=== PATIENT | male | born 1955 | race Caucasian/White ===

== ENCOUNTER 2016-05-15 08:14 | Day surgery (SDC) | payer MEDICARE, OTHER ==
[2016-05-15] MEDS ORDERED: LACTATED RINGERS 1,000 ML IV ONE (08:27)
[2016-05-15] MEDS ORDERED: MIDAZOLAM 2 MG/2 ML VIAL IVP ONE (10:15)
[2016-05-15] MEDS ORDERED: fentaNYL 250 MCG/5 ML VIAL IVP ONE (10:15)
== END 2016-05-15 08:15 | disposition home or self-care (01) ==
PROC: 0DBL8ZZ Excision of Transverse Colon, Via Natural or Artificial Opening Endoscopic (ICD-10-PCS; principal; 2016-05-15 09:15)
DX: Z12.11 Encounter for screening for malignant neoplasm of colon (principal); D12.3 Benign neoplasm of transverse colon; K64.4 Residual hemorrhoidal skin tags; K64.5 Perianal venous thrombosis
CPT/HCPCS: 45380; J3010; J7120

== ENCOUNTER 2016-12-04 08:00 | Outpatient (CLI) | payer MEDICARE ==
[2016-12-04 18:54] LABS: BASOPHILS % (AUTO) 0.7 %; EOSINOPHILS # (AUTO) 0.2 10^3/uL (0.0-0.7); EOSINOPHILS % (AUTO) 3.2 %; HCT - HEMATOCRIT 48.6 % (42.0-52.0); LYMPHOCYTES # (AUTO) 1.8 10^3/uL (1.5-3.5); LYMPHOCYTES % (AUTO) 26.3 %; MEAN CORPUSCULAR HEMOGLOBIN 28.3 pg (27.0-31.0); MEAN CORPUSCULAR HGB CONC 32.8 g/dL (32.0-36.0); MEAN CORPUSCULAR VOLUME 86.3 fL (80.0-94.0); MEAN PLATELET VOLUME 8.1 fL (7.4-11.4); MONOCYTES # (AUTO) 0.6 10^3/uL (0.0-1.0); MONOCYTES % (AUTO) 8.9 %; NEUTROPHILS # (AUTO) 4.1 10^3/uL (1.5-6.6); NEUTROPHILS % (AUTO) 60.9 %; NUCLEATED RED BLOOD CELLS AUTO 0.1 /100WBC; RED BLOOD COUNT 5.63 10^6/uL (4.70-6.10); RED CELL DISTRIBUTION WIDTH 14.7 % (12.0-15.0); UNCORRECTED WHITE BLOOD COUNT 6.7 x10^3/uL; WHITE BLOOD COUNT 6.7 x10^3/uL (4.8-10.8)
== END 2016-12-04 08:01 | disposition home or self-care (01) ==
LOC: LAB.WCP 08:00
PROVIDERS: ATTEND Family Medicine
DX: M25.50 Pain in unspecified joint (principal); N49.2 Inflammatory disorders of scrotum
CPT/HCPCS: 36415; 85025; 85651; 86140

== ENCOUNTER 2017-04-19 05:58 | Emergency (ER) | payer MEDICARE ==
[2017-04-19] MEDS ORDERED: CLINDAMYCIN 150 MG CAPSULE PO STA (06:14)
[2017-04-19] MEDS ORDERED: DEXAMETHASONE 10 MG/ML VIAL PO STA (06:14)
[2017-04-19] MEDS ORDERED: diphenhydrAMINE 25 MG CAPSULE PO STA (06:14)
[2017-04-19] MEDS ORDERED: FAMOTIDINE 20 MG TABLET PO STA (06:15)
[2017-04-19 06:51] VITALS: BP 166/97
[2017-04-19] MEDS ORDERED: PSEUDOEPHEDRINE 30 MG TABLET PO STA (06:55)
--- NOTE | 2017-04-19 06:57 | ED Physician Documentation ---
PD HPI HEENT - Stated complaint Stated Complaint: FACE/TONGUE SWELLING - Chief complaint Chief Complaint: Resp - History obtained from History obtained from: Patient, Family - History of Present Illness Timing - onset: Today Timing - details: Gradual onset, Still present Location: Sinuses, Mouth Improves: Medication Associated symptoms: Fever, Congestion, Facial swelling Similar symptoms before: Work up / diagnostics, Treatment Recently seen: Not recently seen - Additional information Additional information: Patient is a 61 year old male with a history of recurrent infections and multiple allergies who is presenting to the emergency department for congestion and facial swelling. patient states that he has had painful congestion the last few days, and this morning it felt even worse and he felt like his tongue was swollen. Patient and report that he has had allergic reaction to cold medicine in the past. Review of Systems Constitutional: denies: Fever, Chills Ears: denies: Ear pain, Drainage/discharge Nose: reports: Rhinorrhea / runny nose, Congestion, Sinus pressure / pain Throat: reports: Sore throat Cardiac: denies: Chest pain / pressure, Palpitations Respiratory: denies: Cough, Hemoptysis, Wheezing GI: reports: Reviewed and negative : reports: Reviewed and negative Skin: denies: Rash Musculoskeletal: denies: Neck pain, Back pain Neurologic: denies: Near syncope, Syncope, Headache, LOC Psychiatric: reports: Depressed, Reviewed and negative PD PAST MEDICAL HISTORY - Past Medical History Past Medical History: Yes Cardiovascular: None Respiratory: Pneumonia, Sleep apnea Neuro: None Endocrine/Autoimmune: None GI: GERD, Ulcers : Kidney stones HEENT: None Psych: Depression, Anxiety Musculoskeletal: Osteoarthritis, Chronic back pain, Other Derm: None - Past Surgical History Past Surgical History: Yes Ortho: Knee replacement - Present Medications Home Medications: Ambulatory Orders Medication Instructions Recorded Confirmed Alprazolam [Alprazolam Odt] 0.25 mg PO 3-4XD PRN 08/19/12 05/15/16 HYDROcod/ACETAM 5/325 [Vicodin 1 each PO PRN PRN 08/19/12 05/15/16 5/325] Omeprazole [Prilosec] 20 mg PO DAILY 08/19/12 05/15/16 Paroxetine HCl [Paxil] 10 mg PO BID 08/19/12 05/15/16 Clindamycin HCl [Clindamycin 300MG 300 mg PO Q6H 7 Days capsule 04/19/17 CAP] - Allergies Allergies/Adverse Reactions: Allergies Allergy/AdvReac Type Severity Reaction Status Date / Time amoxicillin trihydrate * Allergy Severe Respiratory Verified 11/18/12 21:08 [From Augmentin] adhesive Allergy Intermediate Rash Verified 11/18/12 21:08 potassium clavulanate * Allergy Intermediate Respiratory Verified 11/18/12 21:08 [From Augmentin] diclofenac sodium * AdvReac Edema Verified 11/18/12 21:08 [From Voltaren] zycam Allergy Severe Respiratory Uncoded 11/18/12 21:08 - Social History Does the pt smoke?: No Smoking Status: Never smoker Does the pt drink ETOH?: No Does the pt have substance abuse?: No - Immunizations Immunizations are current?: Yes - POLST Patient has POLST: No PD ED PE NORMAL - General General: Alert and oriented X 3, No acute distress - HEENT HEENT: Atraumatic, PERRL, Moist mucous membranes - Neck Neck: Supple, no meningeal sign - Cardiac Cardiac: RRR, No murmur - Respiratory Respiratory: No respiratory distress - Abdomen Abdomen: Soft - Derm Derm: Normal color, Warm and dry, No rash - Extremities Extremities: No deformity - Neuro Neuro: Alert and oriented X 3, No motor deficit, No sensory deficit Eye Opening: Spontaneous Motor: Obeys Commands Verbal: Oriented GCS Score: 15 - Psych Psych: Normal mood PD ED PE EXPANDED - HEENT HEENT: Right frontal sinus TTP, Left frontal sinus TTP, Right maxillary sinus TTP, Left maxillary sinus TTP, Nasal congestion, Rhinorrhea, Dry mucous membranes, Pharynx normal, Other (subjective tongue swelling). No: Swollen tonsils - Respiratory Respiratory: No: Wheezing, Rhonchi Results - Vitals Vitals: Vital Signs - 24 hr 04/19/17 04/19/17 04/19/17 06:00 06:28 06:50 Temperature 36.3 C L Heart Rate 76 74 76 Respiratory 22 20 16 Rate Blood Pressure 190/119 H 163/110 H 166/97 H O2 Saturation 97 98 98 Oxygen O2 Source Room air PD MEDICAL DECISION MAKING - ED course Complexity details: reviewed old records, reviewed results, re-evaluated patient , considered differential, d/w patient, d/w family ED course: Patient was seen and examined at bedside. Patient complained of subjective tongue swelling, but did have clinical sinusitis. Patient was treated with decadron, benadryl, pepcid and clindamycin. Patient stated that she felt much better. Patient required no further work up and was stable for discharge with outpatient follow up. Departure - Departure Disposition: 01 Home, Self Care Clinical Impression: Sinusitis Condition: Good Instructions: ED Sinusitis Abx Tx Follow-Up: Saeid Gaines MD [Primary Care Provider] - Within 3 Days Prescriptions: Clindamycin HCl [Clindamycin 300MG CAP] 300 mg PO Q6H 7 Days capsule Comments: Your symptoms today are likely secondary to sinusitis. You will be on clindamycin for the next week. You should take it with yogurt or probiotics to help reduce the GI side effects. You can also take benadryl, pepcid and pseudophed. A lot of the over the counter sinus pills will have combinations of the necessary medications. You should follow up with your doctor if your symptoms don't improve. You may return to the emergency department at any time for new, worsening or uncontrollable symptoms. Discharge Date/Time: 04/19/17 07:13
== END 2017-04-19 07:13 | disposition home or self-care (01) ==
LOC: ED 05:58
DX: J32.9 Chronic sinusitis, unspecified (principal)
CPT/HCPCS: 99283; 99284; A9270

== ENCOUNTER 2018-11-12 15:39 | Emergency (ER) | payer OTHER, MEDICARE ==
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
[2018-11-12] MEDS ORDERED: KETOROLAC 30 MG/ML VIAL IVP STA (16:30)
[2018-11-12] MEDS ORDERED: MORPHINE 10 MG/ML VIAL IVP ONE (16:30)
[2018-11-12] MEDS ORDERED: IOVERSOL 320 100 ML VIAL IVP ONE ×2 (16:46→17:23)
[2018-11-12] MEDS ORDERED: METHOCARBAMOL 500 MG TABLET PO STA (16:52)
[2018-11-12 16:56] LABS: BASOPHILS % (AUTO) 0.5 %; EOSINOPHILS # (AUTO) 0.1 10^3/uL (0.0-0.7); EOSINOPHILS % (AUTO) 0.9 %; HGB - HEMOGLOBIN 16.2 g/dL (14.0-18.0); LYMPHOCYTES # (AUTO) 1.2 10^3/uL (1.5-3.5); LYMPHOCYTES % (AUTO) 15.1 %; MEAN CORPUSCULAR HEMOGLOBIN 28.3 pg (27.0-31.0); MEAN CORPUSCULAR HGB CONC 32.7 g/dL (32.0-36.0); MEAN CORPUSCULAR VOLUME 86.6 fL (80.0-94.0); MEAN PLATELET VOLUME 9.5 fL (7.4-11.4); MONOCYTES # (AUTO) 0.6 10^3/uL (0.0-1.0); MONOCYTES % (AUTO) 7.5 %; NEUTROPHILS # (AUTO) 6.2 10^3/uL (1.5-6.6); NEUTROPHILS % (AUTO) 75.8 %; PLT - PLATELET COUNT 228 10^3/uL (130-450); RED BLOOD COUNT 5.73 10^6/uL (4.70-6.10); RED CELL DISTRIBUTION WIDTH 13.6 % (12.0-15.0); WHITE BLOOD COUNT 8.1 x10^3/uL (4.8-10.8)
[2018-11-12 17:12] LABS: ALBUMIN 3.9 g/dL (3.2-5.5); BILIRUBIN,TOTAL 1.2 mg/dL (0.2-1.0); CALCIUM 8.9 mg/dL (8.5-10.3); CREATININE 1.1 mg/dL (0.6-1.2); TOTAL PROTEIN 7.9 g/dL (6.7-8.2)
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
[2018-11-12 18:16] VITALS: BP 124/67
== END 2018-11-12 18:32 | disposition home or self-care (01) ==
LOC: ED 15:39
DX: S62.524A Nondisplaced fracture of distal phalanx of right thumb, initial encounter for closed fracture (principal); S39.012A Strain of muscle, fascia and tendon of lower back, initial encounter; S20.219A Contusion of unspecified front wall of thorax, initial encounter; S30.1XXA Contusion of abdominal wall, initial encounter; M54.2 Cervicalgia; M25.511 Pain in right shoulder; M25.512 Pain in left shoulder; M25.561 Pain in right knee; M25.562 Pain in left knee; V43.52XA Car driver injured in collision with other type car in traffic accident, initial encounter; Y92.411 Interstate highway as the place of occurrence of the external cause
CPT/HCPCS: 36415; 71260; 72125; 73140; 74177; 80053; 83690; 85025; 96374; 99284; A9270; Q9967

== ENCOUNTER 2018-12-24 08:00 | Outpatient (CLI) | payer MEDICARE ==
[2018-12-24 18:54] LABS: BASOPHILS % (AUTO) 0.7 %; EOSINOPHILS # (AUTO) 0.3 10^3/uL (0.0-0.7); EOSINOPHILS % (AUTO) 4.7 %; HGB - HEMOGLOBIN 16.5 g/dL (14.0-18.0); LYMPHOCYTES # (AUTO) 1.3 10^3/uL (1.5-3.5); MEAN CORPUSCULAR HEMOGLOBIN 28.9 pg (27.0-31.0); MEAN CORPUSCULAR HGB CONC 32.2 g/dL (32.0-36.0); MEAN CORPUSCULAR VOLUME 89.7 fL (80.0-94.0); MEAN PLATELET VOLUME 9.7 fL (7.4-11.4); MONOCYTES # (AUTO) 0.5 10^3/uL (0.0-1.0); MONOCYTES % (AUTO) 8.4 %; NEUTROPHILS # (AUTO) 3.6 10^3/uL (1.5-6.6); NEUTROPHILS % (AUTO) 62.7 %; PLT - PLATELET COUNT 321 10^3/uL (130-450); RED BLOOD COUNT 5.71 10^6/uL (4.70-6.10); RED CELL DISTRIBUTION WIDTH 13.5 % (12.0-15.0); WHITE BLOOD COUNT 5.7 x10^3/uL (4.8-10.8)
[2018-12-24 19:10] LABS: ALBUMIN 3.8 g/dL (3.2-5.5); ALBUMIN/GLOBULIN RATIO 0.9 (1.0-2.2); CALCIUM 8.9 mg/dL (8.5-10.3); CREATININE 1.1 mg/dL (0.6-1.2)
[2018-12-24 19:17] LABS: CHOLESTEROL 167 mg/dL; HDL CHOLESTEROL 42 mg/dL; LDL CHOLESTEROL,CALCULATED 104 mg/dL; LDL/HDL RATIO 2.5 (<3.6); VLDL CHOLESTEROL 21 mg/dL
[2018-12-24 19:46] LABS: HB2 TOTAL 17.5 g/dL; HEMOGLOBIN A1C 0.74 g/dL
[2018-12-24 19:57] LABS: CREATININE,URINE 583.5 mg/dL; MICROALBUM/CREATININE RATIO,UR 24.3 ug/mg (<30.0); MICROALBUMIN,URINE 14.2 mg/dL (0-300.0)
== END 2018-12-24 23:59 | disposition home or self-care (01) ==
LOC: LAB.WCP 08:00
PROVIDERS: ATTEND Family Medicine
DX: Z00.00 Encounter for general adult medical examination without abnormal findings (principal); R73.9 Hyperglycemia, unspecified; R03.0 Elevated blood-pressure reading, without diagnosis of hypertension; Z12.5 Encounter for screening for malignant neoplasm of prostate
CPT/HCPCS: 36415; 80061; 82043; 82570; 83036; G0103; 80053; 83721; 84153; 84443; 85025

== ENCOUNTER 2019-01-02 08:00 | Outpatient (CLI) | payer MEDICARE ==
[2019-01-02 19:10] LABS: PSA FREE 0.627 ng/mL (0.16-2.81); PSA TOTAL 3.455 ng/mL (0.000-2.000)
== END 2019-01-02 23:59 | disposition home or self-care (01) ==
LOC: LAB.WCP 08:00
PROVIDERS: ATTEND Family Medicine
DX: R97.20 Elevated prostate specific antigen [PSA] (principal)
CPT/HCPCS: 36415; 84153; 84154

== ENCOUNTER 2021-11-15 07:48 | Day surgery (SDC) | payer MEDICARE ==
--- NOTE | 2021-11-15 07:25 | ANESTHESIA ---
Pre-Anesthesia VS, & Labs - Diagnosis screening - Procedure colonoscopy Height: 5 ft 8 in - NPO >8 hours Home Medications and Allergies Omeprazole [Prilosec] 20 mg PO DAILY 08/19/12 Allergies/Adverse Reactions: Allergies Allergy/AdvReac Type Severity Reaction Status Date / Time amoxicillin trihydrate * Allergy Severe Respiratory Verified 10/18/21 17:31 [From Augmentin] adhesive Allergy Intermediate Rash Verified 10/18/21 17:31 potassium clavulanate * Allergy Intermediate Respiratory Verified 10/18/21 17:31 [From Augmentin] latex Allergy Rash Verified 11/08/21 13:07 diclofenac sodium * AdvReac Edema Verified 10/18/21 17:31 [From Voltaren] zycam Allergy Severe Respiratory Uncoded 11/12/18 15:53 Anes History & Medical History - Anesthetic History Anesthesia Complications: reports: No previous complications Family history of Anesthesia Complications: Denies Family history of Malignant Hyperthermia: Denies - Medical History Cardiovascular: reports: None Pulmonary: reports: Pneumonia Gastrointestinal: reports: GERD, Ulcers Urinary: reports: Kidney stones Musculoskeletal: reports: Osteoarthritis, Chronic back pain Endocrine/Autoimmune: reports: None Blood Disorders: reports: None Skin: reports: None Smoking Status: Never smoker - Surgical History General: reports: Colonoscopy, EGD Urologic: reports: Ureterolithotomy (stones) Orthopedic: reports: Knee replacement Exam General: Alert, Oriented x3, Cooperative Dental: WNL Mouth Openin Fingerbreadth Neck Mobility: Normal Mallampati classification: II Thyromental Distance: 4-6 cm Respiratory: Lungs clear, Normal breath sounds, No respiratory distress Cardiovascular: Regular rate Neurological: Normal speech Mental/Cognitive Status: Alert/Oriented X3, Normal for patient Cognitive Status: Within normal limits Plan Anesthesia Type: Total IV Consent for Procedure(s) Verified and Reviewed: Yes Code Status: Attempt Resuscitation ASA classification: 3-Severe systemic disease Is this case an emergency?: No
[~2021-11-15 07:48] MED LIST: PROPOFOL 500 MG/50 ML 500 MG/50 ML VIAL ONE
[2021-11-15] MEDS ORDERED: LACTATED RINGERS 1,000 ML IV ONE (08:30)
[2021-11-15] MEDS ORDERED: MIDAZOLAM 2 MG/2 ML VIAL ONE (09:02)
[2021-11-15] MEDS ORDERED: LACTATED RINGERS 700 ML IV ONE (09:35)
[2021-11-15 10:01] VITALS: BP 139/82
--- NOTE | 2021-11-15 11:02 | ANESTHESIA POST OP EVALUATION ---
Anesthesia Post Eval - Post Anesthesia Eval Vitals: Last Vital Signs Temp 36.4 C L 11/15/21 10:00 Pulse 74 11/15/21 10:00 Resp 16 11/15/21 10:00 BP 139/82 H 11/15/21 10:00 Pulse Ox 93 11/15/21 10:00 CV Function Including HR & BP: Stable Pain Control: Satisfactory Nausea & Vomiting: Negative Mental Status: Baseline Respiratory Status: Airway Patent Hydration Status: Satisfactory Anesthesia Complications: None
== END 2021-11-15 07:49 | disposition home or self-care (01) ==
LOC: SDS 07:48
PROVIDERS: ATTEND Surgery
DX: Z12.11 Encounter for screening for malignant neoplasm of colon (principal); K64.8 Other hemorrhoids; G47.33 Obstructive sleep apnea (adult) (pediatric)

== ENCOUNTER 2023-07-04 16:34 | Emergency (ER) | payer MEDICARE ==
[2023-07-04 17:07] LABS: BASOPHILS # (AUTO) 0.1 10^3/uL (0.0-0.1); BASOPHILS % (AUTO) 0.8 %; EOSINOPHILS # (AUTO) 0.3 10^3/uL (0.0-0.7); EOSINOPHILS % (AUTO) 3.6 %; LYMPHOCYTES # (AUTO) 1.7 10^3/uL (1.5-3.5); LYMPHOCYTES % (AUTO) 23.5 %; MEAN CORPUSCULAR HEMOGLOBIN 28.9 pg (27.0-31.0); MEAN CORPUSCULAR HGB CONC 33.3 g/dL (32.0-36.0); MEAN CORPUSCULAR VOLUME 86.6 fL (80.0-94.0); MEAN PLATELET VOLUME 9.3 fL (7.4-11.4); MONOCYTES # (AUTO) 0.7 10^3/uL (0.0-1.0); MONOCYTES % (AUTO) 8.8 %; NEUTROPHILS # (AUTO) 4.7 10^3/uL (1.5-6.6); NEUTROPHILS % (AUTO) 63.2 %; PLT - PLATELET COUNT 263 10^3/uL (130-450); RED BLOOD COUNT 5.89 10^6/uL (4.70-6.10); RED CELL DISTRIBUTION WIDTH 13.8 % (12.0-15.0); WHITE BLOOD COUNT 7.4 x10^3/uL (4.8-10.8)
[2023-07-04 17:15] LABS: BILIRUBIN,URINE NEGATIVE (NEGATIVE); GLUCOSE, URINE (UA) NEGATIVE (NEGATIVE); KETONES,URINE (UA) NEGATIVE (NEGATIVE); LEUKOCYTE ESTERASE, URINE NEGATIVE (NEGATIVE); NITRITE,URINE NEGATIVE (NEGATIVE); OCCULT BLOOD,URINE NEGATIVE (NEGATIVE); PH,URINE 5.5 PH (5.0-7.5); PROTEIN,URINE NEGATIVE (NEGATIVE); UROBILINOGEN,URINE 0.2 (NORMAL) E.U./dL (NORMAL)
[2023-07-04 17:17] LABS: CLARITY,URINE CLEAR (CLEAR)
[2023-07-04 17:26] LABS: ALBUMIN 4.3 g/dL (3.2-5.5); ALBUMIN/GLOBULIN RATIO 1.2 (1.0-2.2); BILIRUBIN,TOTAL 0.6 mg/dL (0.2-1.0); CALCIUM 9.9 mg/dL (8.5-10.3); POTASSIUM 4.2 mmol/L (3.5-4.5)
--- NOTE | 2023-07-04 17:39 | ED Physician Documentation ---
PD HPI ABD PAIN - Stated complaint Stated Complaint: ABD PX - Chief complaint Chief Complaint: Abd Pain - History obtained from History obtained from: Patient - History of Present Illness Timing - details: Gradual onset, Still present, Intermittant, Waxing and waning Quality: Cramping, Stabbing Worsened by: Palpation - Additional information Additional information: 67-year-old male who has a past medical history significant for Crohn's disease according to the patient with prior diverticulitis, kidney stones, and gastric ulcers who presents with left lower quadrant abdominal pain. Pain started aboutA week ago but worsening over the last couple of days. Pain is always there but he has waves of worsening pain. He has also felt distended and states that his abdomen is twice the size it normally is. He has not had a fever to his knowledge, no chills, no vomiting, or nausea. He has had normal bowel m ovements.He previously was told to be on famotidine but he was not taking it regularly because his prior GERD symptoms resolved For the most part. He He does note lately however that he has been taking quite regular ibuprofen due to arthritis pain throughout the winter. He is not on any medication for his Crohn's. Colonoscopy 10/2021 appears essential normal. No mention of Crohns. Review of Systems Constitutional: reports: Reviewed and negative Eyes: reports: Reviewed and negative Ears: reports: Reviewed and negative Nose: reports: Reviewed and negative Throat: reports: Reviewed and negative Cardiac: reports: Reviewed and negative Respiratory: reports: Reviewed and negative GI: reports: Abdominal Pain : reports: Reviewed and negative Musculoskeletal: reports: Reviewed and negative Neurologic: reports: Reviewed and negative Psychiatric: reports: Reviewed and negative Endocrine: reports: Reviewed and negative Immunocompromised: reports: Reviewed and negative PD PAST MEDICAL HISTORY - Past Medical History Past Medical History: Yes Cardiovascular: None Respiratory: Pneumonia Endocrine/Autoimmune: None GI: GERD, Ulcers : Kidney stones HEENT: None Psych: Depression, Anxiety Musculoskeletal: Osteoarthritis, Chronic back pain Derm: None - Past Surgical History Past Surgical History: Yes General: Colonoscopy, EGD Ortho: Knee replacement - Present Medications Home Medications: Ambulatory Orders Medication Instructions Recorded Confirmed Omeprazole [Prilosec] 20 mg PO DAILY 08/19/12 11/15/21 HYDROcod/ACETAM 5/325 [Sharon 5/325] 1 - 2 tab PO Q6H PRN #15 tablet 10/18/21 11/15/21 Famotidine [Pepcid] 20 mg PO BID #60 tablet 07/04/23 HYDROcod/ACETAM 5/325 [Sharon 5/325] 1 - 2 tablet PO Q6H PRN #14 tablet 07/04/23 - Allergies Allergies/Adverse Reactions: Allergies Allergy/AdvReac Type Severity Reaction Status Date / Time amoxicillin trihydrate * Allergy Severe Respiratory Verified 07/04/23 16:51 [From Augmentin] adhesive Allergy Intermediate Rash Verified 07/04/23 16:51 potassium clavulanate * Allergy Intermediate Respiratory Verified 07/04/23 16:51 [From Augmentin] latex Allergy Rash Verified 07/04/23 16:51 diclofenac sodium * AdvReac Edema Verified 07/04/23 16:51 [From Voltaren] zycam Allergy Severe Respiratory Uncoded 07/04/23 16:51 - Social History Does the pt smoke?: No Smoking Status: Never smoker Does the pt drink ETOH?: No Does the pt have substance abuse?: No - Immunizations Immunizations are current?: Yes - POLST Patient has POLST: No PD ED PE NORMAL - Vitals Vital signs reviewed: Yes - General General: Alert and oriented X 3, No acute distress, Well developed/nourished - HEENT HEENT: Atraumatic, Moist mucous membranes - Neck Neck: Supple, no meningeal sign, No JVD - Cardiac Cardiac: RRR, No murmur - Respiratory Respiratory: No respiratory distress, Clear bilaterally - Abdomen Abdomen: Normal bowel sounds, Soft, Other (Tenderness in the left lower abdomen. Active bowel tones.) - Back Back: No CVA TTP, No spinal TTP - Derm Derm: Normal color, Warm and dry, No rash - Extremities Extremities: No deformity, No tenderness to palpate, Normal ROM s pain, No edema, No calf tenderness / cord - Neuro Neuro: Alert and oriented X 3 Eye Opening: Spontaneous Motor: Obeys Commands Verbal: Oriented GCS Score: 15 - Psych Psych: Normal mood, Normal affect Results - Vitals Vitals: Vital Signs - 24 hr 07/04/23 07/04/23 07/04/23 16:40 18:59 20:07 Temperature 36.1 C L Heart Rate 81 84 78 Respiratory 22 17 19 Rate Blood Pressure 155/90 H 164/91 H 148/79 H O2 Saturation 97 93 98 Oxygen O2 Source Room air - Labs Labs: Laboratory Tests 07/04/23 07/04/23 07/04/23 16:57 17:02 17:02 WBC 7.4 RBC 5.89 Hgb 17.0 Hct 51.0 MCV 86.6 MCH 28.9 MCHC 33.3 RDW 13.8 Plt Count 263 MPV 9.3 Neut # (Auto) 4.7 Lymph # (Auto) 1.7 [place] # (Auto) 0.7 Eos # (Auto) 0.3 Baso # (Auto) 0.1 Absolute Nucleated RBC 0.00 Nucleated RBC % 0.0 Sodium 136 Potassium 4.2 Chloride 104 Carbon Dioxide 25 Anion Gap 7.0 BUN 21 H Creatinine 1.0 Estimated GFR (MDRD) 75 L Glucose 143 H Calcium 9.9 Total Bilirubin 0.6 AST 18 ALT 17 Alkaline Phosphatase 65 Total Protein 8.0 Albumin 4.3 Globulin 3.7 Albumin/Globulin Ratio 1.2 Lipase 15 Urine Color YELLOW Urine Clarity CLEAR Urine pH 5.5 Ur Specific [place] >=1.030 H Urine Protein NEGATIVE Urine Glucose (UA) NEGATIVE Urine Ketones NEGATIVE Urine Occult Blood NEGATIVE Urine Nitrite NEGATIVE Urine Bilirubin NEGATIVE Urine Urobilinogen 0.2 (NORMAL) Ur Leukocyte Esterase NEGATIVE Ur Microscopic Review NOT INDICATED Urine Culture Comments NOT INDICATED - Rads (name of study) No standard instances Relevant Findings:: Final report received PD Medical Decision Making - ED course Complexity details: reviewed old records, reviewed results, re-evaluated patient, considered differential, d/w patient, d/w family ED course: 67-year-old male presented with left lower quadrant abdominal pain as described in HPI. Differentials considered included diverticulitis, ureteral stone, UTI, pyelonephritis, colitis, bowel obstruction among other differentials. Patient is well-appearing here on physical exam, nontoxic, afebrile. He appears in no acute distress. He has no chest pain or difficulty breathing. He does have reproducible left lower quadrant abdominal pain therefore we did obtain lab work including CBC, CMP and urinalysis all of which are reassuring. Proceed with a CT scan given patient's reported history, CT scan shows no acute findings. Review of prior records including colonoscopy in 2021 and there is no mention of Crohn's in fact his colonoscopy was quite normal. I discussed this with patient and he states he has not sure, but he believes he was told he may have had Crohn's. Encouraged him to follow-up with his PCP and GI for this, and in the meantime will treat supportively, advised plan, ideally clear liquid diet tonight and can advance slowly as tolerated, would like him to stop taking ibuprofen for now use sparingly. I have resumed his famotidine and given a short course of hydrocodone to use only as needed. Discussed return precautions in detail with patient and his . Patient discharged home in stable condition. Patient later called back inquiring about whether he could get H. pylori testing here. Advises typically not done through the emergency department but encouraged him to discuss with PCP for this testing. Departure - Departure Disposition: Home, Self Care Clinical Impression: Abdominal pain Qualifiers: Abdominal location: left lower quadrant Qualified Code(s): R10.32 - Left lower quadrant pain Condition: Good Instructions: ED Abdominal Pain Unkn Cause Male Prescriptions: HYDROcod/ACETAM 5/325 [Sharon 5/325] 1 - 2 tablet PO Q6H PRN #14 tablet PRN Reason: Pain Famotidine [Pepcid] 20 mg PO BID #60 tablet Comments: Jovanny, it is not clear what is causing your abdominal pain. Your workup today is reassuring, and there are no acute findings on the CT scan or in your lab work. Your colonoscopy in 2021 appeared normal and it does not appear that they mention Crohn's disease but if you think you have been diagnosed with this in the past, please follow-up with your primary doctor. I have restarted your famotidine and I have given you a short course of as needed hydrocodone. I would like you to stop taking the ibuprofen for now as this could make your reflux symptoms worse. Forms: PCP List Discharge Date/Time: 07/04/23 20:00
[2023-07-04] MEDS ORDERED: iohexoL-300 100 ML VIAL ONE (17:41)
[2023-07-04] MEDS: ONDANSETRON 4 MG/2 ML VIAL IVP STA (18:01)
[2023-07-04] MEDS: HYDROmorphone 1 MG/ML CARPUJECT IVP STA (18:05)
[2023-07-04] MEDS: FAMOTIDINE 20 MG/2 ML VIAL IVP STA (18:09)
[2023-07-04] MEDS: iohexoL-300 100 ML VIAL IVP ONE (19:27)
--- NOTE | 2023-07-04 19:36 | CT Report ---
PROCEDURE: Abdomen/Pelvis W INDICATIONS: llq pain CONTRAST: 100ML [id number] TECHNIQUE: After the administration of intravenous contrast, a CT scan of the abdomen and pelvis was performed. Images were recorded and evaluated at appropriate window settings. Reformats: coronal and sagittal. F or radiation dose reduction, the following was used: automated exposure control, adjustment of mA and /or kV according to patient size. COMPARISON: CT abdomen/pelvis 10/18/2021. FINDINGS: Image quality: Diagnostic. Lower chest: Unremarkable. Liver: No solid mass. Gallbladder and biliary tree: No radiopaque stones or wall thickening. No biliary dilation. Spleen: No splenomegaly. Pancreas: No pancreatic ductal dilation. Adrenals: No adrenal nodule. Kidneys and ureters: 5 mm nonobstructing calculus is seen at the superior pole the left kidney (730 H [place] units). 3 mm nonshadowing calculus is seen at the interpolar region of the right kidney. No hydronephrosis. No hydronephrosis. No renal cystic lesion which requires follow up. No solid mass. Stomach, bowel and peritoneum: No bowel distension. No pathologic free fluid. Lymph nodes: No central or retroperitoneal adenopathy. Vessels: No infrarenal aortic aneurysm. PELVIS Reproductive organs: Coarse calcifications are seen in the prostate.. Bladder: No abnormal wall thickening, accounting for underdistention. Pelvic lymph nodes: No pelvic adenopathy by size criteria. Bones: No aggressive osseous abnormality. Degenerative changes are seen in the included spine. There is fusion across the L2-3 disc space. Other: No significant ventral or inguinal hernia. IMPRESSION: 1.Bilateral nonobstructing renal calculi. No hydronephrosis. 2.No acute inflammatory process identified in the abdomen or pelvis. Reviewed by: Kenn Wolfe MD on 07/04/2023 7:34 PM PDT Approved by: Kenn Wolfe MD on 07/04/2023 7:34 PM PDT Station ID: [id number]
[2023-07-04 20:12] VITALS: BP 148/79; O2SAT 98
== END 2023-07-04 20:00 | disposition home or self-care (01) ==
LOC: ED 16:34
DX: R10.32 Left lower quadrant pain (principal)
CPT/HCPCS: 36415; 74177; 80053; 81003; 83690; 85025; 96374; 96375; 99283; 99284; J1170; Q9967; 81001; 87086